=== PATIENT | male | born 1965 | race Caucasian/White ===

== ENCOUNTER 2017-09-16 13:37 | Emergency (ER) | payer OTHER, MEDICARE ==
[~2017-09-16] VITALS: Ht 185.4 cm; Wt 83.9 kg
[~2017-09-16 13:37] MED LIST: GABA800 PO; HYDACE5 PO; INSULIN PUMP; LEVSOD50 PO; LISI10 PO; LITH300C PO; LITH450ER PO; METO5A PO; ZIPR20 PO; ZIPR80 PO
[2017-09-16] MEDS ORDERED: Norco 5-325 Ta1 EACH PO (14:38)
== END 2017-09-16 14:48 | disposition home or self-care (01) ==
LOC: ER 13:37
DX: M24.9 Joint derangement, unspecified (principal); Z88.8 Allergy status to other drugs, medicaments and biological substances; Z88.5 Allergy status to narcotic agent; Z79.899 Other long term (current) drug therapy; Z79.4 Long term (current) use of insulin; E11.9 Type 2 diabetes mellitus without complications; Z87.891 Personal history of nicotine dependence
CPT/HCPCS: 73030

== ENCOUNTER 2017-12-06 00:27 | Inpatient (IN) | payer OTHER, MEDICARE ==
[~2017-12-06] VITALS: Ht 182.9 cm; Wt 80.3 kg
[~2017-12-06 00:27] MED LIST changes: +Norco 5-325 Ta1 EACH PO
[2017-12-06 01:17] LABS: Bicarbonate Venous 13.5 mmol/L (24.0-30.0); PCO2 Venous 31.6 mmHg (38-42); PO2 Venous 59.1 mmHg (38-42)
[2017-12-06 01:18] LABS: pH Blood Venous 7.19 (7.34-7.37)
[2017-12-06 01:20] LABS: BASOPHILS ABSOLUTE AUTO 0.04 K/mm3 (0.00-0.23); BASOPHILS PERCENT AUTO 0 % (0-2); EOSINOPHILS PERCENT AUTO 0 % (0-6); Hematocrit 45.9 % (37.0-53.0); Hemoglobin 15.3 g/dL (13.5-17.5); IMMATURE GRAN ABSOLUTE AUTO 0.24 K/mm3 (0.00-0.10); IMMATURE GRAN PERCENT AUTO 1 % (0-1); LYMPHOCYTES ABSOLUTE AUTO 1.13 K/mm3 (0.84-5.20); LYMPHOCYTES PERCENT AUTO 4 % (21-46); MONOCYTES ABSOLUTE AUTO 1.91 K/mm3 (0.16-1.47); MONOCYTES PERCENT AUTO 7 % (4-13); Mean Corpuscular HGB 31.7 pg (26.0-34.0); Mean Corpuscular HGB Conc 33.3 g/dL (31.5-36.5); Mean Corpuscular Volume 95 fL (80-100); Mean Platelet Volume 9.7 fL (9.1-12.4); NEUTROPHILS ABSOLUTE AUTO 24.95 K/mm3 (1.96-9.15); NEUTROPHILS PERCENT AUTO 88 % (41-73); Platelet Count 391 K/mm3 (150-400); RDW Coefficient Variation 12.6 % (11.7-14.2); Red Blood Cell Count 4.83 M/mm3 (4.30-5.90); White Blood Cell Count 28.27 K/mm3 (4.00-11.30)
[2017-12-06 02:18] LABS: Beta-hydroxybutyrate 79.8 mg/dL (0.2-2.8); Bilirubin, Total 2.3 mg/dL (0.1-1.0); Bun/Creatinine Ratio 23.9 (12.0-20.0); Calcium, Blood 8.8 mg/dL (8.5-10.1); Creatinine, Blood 1.55 mg/dL (0.60-1.20); Globulin, Blood 4.2 g/dL (2.2-4.0); Potassium, Blood 4.7 mmol/L (3.5-5.5); Total Protein, Blood 8.2 g/dL (6.4-8.2)
[2017-12-06 02:22] LABS: Source, Urine Voided
[2017-12-06 02:39] LABS: Bilirubin, Urine Neg (Neg); Blood, Urine Neg (Neg); Glucose Qualitative, Urine 4+ (Neg); Ketones, Urine 4+ (Neg); Leukocyte Esterase, Urine Neg (Neg); Nitrite, Urine Neg (Neg); Protein, Urine Neg (Neg); Urobilinogen, Urine NORM (Normal)
[2017-12-06 02:41] LABS: Appearance, Urine Clear (Clear); Color, Urine Yellow (P-Yellow)
[2017-12-06 04:20] LABS: Glucose (ISTAT POC) 425 mg/dL (70-99)
[2017-12-06 05:59] LABS: Bun/Creatinine Ratio 22.3 (12.0-20.0); Calcium, Blood 7.7 mg/dL (8.5-10.1); Creatinine, Blood 1.48 mg/dL (0.60-1.20); Potassium, Blood 3.5 mmol/L (3.5-5.5)
[2017-12-06 06:04] LABS: Lithium <0.20 mmol/L (0.60-1.20)
[2017-12-06 09:12] LABS: Anion Gap 9 mmol/L (6-16); Blood Urea Nitrogen 32 mg/dL (8-24); Bun/Creatinine Ratio 24.2 (12.0-20.0); CO2, Blood 22 mmol/L (21-32); Calcium, Blood 7.6 mg/dL (8.5-10.1); Chloride, Blood 106 mmol/L (98-108); Creatinine, Blood 1.32 mg/dL (0.60-1.20); Glomerular Filtration Rate >60 (60-); Glucose, Blood 220 mg/dL (70-99); Potassium, Blood 3.9 mmol/L (3.5-5.5); Sodium, Blood 137 mmol/L (136-145)
[2017-12-06] MEDS ORDERED: LAMO100 PO (11:35)
[2017-12-06 16:42] LABS: Potassium, Blood 3.9 mmol/L (3.5-5.5)
[2017-12-07 04:37] LABS: Anion Gap 7 mmol/L (6-16); Blood Urea Nitrogen 22 mg/dL (8-24); Bun/Creatinine Ratio 19.5 (12.0-20.0); CO2, Blood 26 mmol/L (21-32); Calcium, Blood 7.9 mg/dL (8.5-10.1); Chloride, Blood 107 mmol/L (98-108); Creatinine, Blood 1.13 mg/dL (0.60-1.20); Glomerular Filtration Rate >60 (60-); Glucose, Blood 158 mg/dL (70-99); Potassium, Blood 3.9 mmol/L (3.5-5.5); Sodium, Blood 140 mmol/L (136-145)
== END 2017-12-07 11:00 | disposition home or self-care (01) | DRG 638 ==
LOC: ER 00:27 → ICUW 02:53 → ICUE 03:23 → PCU 20:30
PROVIDERS: Emergency Medicine; Family Medicine; Internal Medicine
DX: E10.10 Type 1 diabetes mellitus with ketoacidosis without coma (principal); E87.1 Hypo-osmolality and hyponatremia; N17.9 Acute kidney failure, unspecified; Z96.41 Presence of insulin pump (external) (internal); E10.43 Type 1 diabetes mellitus with diabetic autonomic (poly)neuropathy; K31.84 Gastroparesis; F32.9 Major depressive disorder, single episode, unspecified; E03.9 Hypothyroidism, unspecified; E11.40 Type 2 diabetes mellitus with diabetic neuropathy, unspecified; Z88.5 Allergy status to narcotic agent; Z88.8 Allergy status to other drugs, medicaments and biological substances; Z79.899 Other long term (current) drug therapy; Z87.891 Personal history of nicotine dependence
CPT/HCPCS: 36415; 71046; 80048; 80051; 80053; 80178; 81003; 82010; 82803; 82947; 83605; 84484; 85025; 96361; 96374; 99285-25; J1815; J2405; J2550; J3480; J7030; J7042

== ENCOUNTER 2019-08-04 08:12 | Day surgery (SDC) | payer OTHER, MEDICARE ==
[~2019-08-04 08:12] MED LIST changes: +LAMO100 PO
--- NOTE | 2019-08-04 11:02 | NUR ---
DISCHARGE Discharge instructions reviewed with patient. Patient verbalizes understanding. Copy given to patient to take home. Discharged via wheelchair to private car for ride home. PT [facility] CALLED FOR OK TO DC HOME PT DENIES ANY COMPLAINTS AT THIS TIME
== END 2019-08-04 11:04 | disposition home or self-care (01) ==
LOC: RAD 08:12 → CT 10:00 → RAD 11:04
DX: M96.1 Postlaminectomy syndrome, not elsewhere classified (principal); J43.9 Emphysema, unspecified; Z88.6 Allergy status to analgesic agent; Z79.899 Other long term (current) drug therapy; E10.40 Type 1 diabetes mellitus with diabetic neuropathy, unspecified
CPT/HCPCS: 62303; 72129; Q9966

== ENCOUNTER 2021-03-04 14:23 | Day surgery (SDC) | payer OTHER, MEDICARE ==
[~2021-03-04] VITALS: Ht 185.4 cm; Wt 81.4 kg
--- NOTE | 2021-03-04 15:19 | NUR ---
03/04/21 1519 Iliana Tenorio PT HAS MEDICAL ALERT ON, REMOVED WEDDING RING AND GAVE TO SPOUSE. PT HAS INSULIN PUMP, SPINAL CORD STIMULATOR AND CGM IMPLANTED. PT ATE THIS MORNING AT 0500, DR GORDON AND DR CALDERON AWARE. NO QUESTIONS OR CONCERNS FROM THE PT AT THIS TIME. PERSONAL GLASSES GIVEN TO . CAN E AND HAT WILL BE PLACED WITH PERSONAL BELONGINGS.
--- NOTE | 2021-03-04 15:29 | NUR ---
03/04/21 1529 Jim Pizarro SMALL DOT ABRASION ON SURGICAL ANKLE. DR NOTIFIED, OK TO PROCEED.
--- NOTE | 2021-03-04 16:41 | NUR ---
03/04/[address] ORDERED A CBG, PT HAS HIS OWN CGM AND DR CALDERON SAID THAT USING HIS READING INSTEAD OF CHECKING WITH OUR MONITOR IS FINE. HIS READING WAS 101 AT 1630.
== END 2021-03-04 16:58 | disposition home or self-care (01) ==
LOC: ORSCSDS 14:23
PROVIDERS: Podiatrist Foot & Ankle Surgery
PROC: 0Y6T0Z0 Detachment at Right 3rd Toe, Complete, Open Approach (ICD-10-PCS; principal; 2021-03-04 16:00)
PROC: 0Y6X0Z0 Detachment at Right 5th Toe, Complete, Open Approach (ICD-10-PCS; principal; 2021-03-04 16:00)
PROC: 0Y6V0Z0 Detachment at Right 4th Toe, Complete, Open Approach (ICD-10-PCS; principal; 2021-03-04 16:00)
DX: L89.891 Pressure ulcer of other site, stage 1 (principal); E11.42 Type 2 diabetes mellitus with diabetic polyneuropathy; Z79.4 Long term (current) use of insulin; Z79.899 Other long term (current) drug therapy; E03.9 Hypothyroidism, unspecified; I10 Essential (primary) hypertension; K21.9 Gastro-esophageal reflux disease without esophagitis; F31.9 Bipolar disorder, unspecified; Z87.891 Personal history of nicotine dependence; J44.9 Chronic obstructive pulmonary disease, unspecified
CPT/HCPCS: 82947; J0690; J1100; J2250; J2405; J2704; J3010; J7120; J7799

== ENCOUNTER 2021-10-25 09:26 | Day surgery (SDC) | payer OTHER, MEDICARE ==
[~2021-10-25] VITALS: Ht 185.4 cm; Wt 80.6 kg
[2021-10-25] MEDS ORDERED: IBUP200 (10:18)
--- NOTE | 2021-10-25 12:33 | NUR ---
10/25/21 1233 Colby Og 5/325 PROVIDED AT 1205 FOR LEFT LEG PAIN AT 05/30. PRESENT DURING DISCHARGE INSTRUCTIONS.
== END 2021-10-25 12:25 | disposition home or self-care (01) ==
LOC: ORSCSDS 09:26
PROVIDERS: Podiatrist Foot & Ankle Surgery
PROC: 0L8P0ZZ Division of Left Lower Leg Tendon, Open Approach (ICD-10-PCS; principal; 2021-10-25 11:00)
DX: E10.40 Type 1 diabetes mellitus with diabetic neuropathy, unspecified (principal); M24.573 Contracture, unspecified ankle; J44.9 Chronic obstructive pulmonary disease, unspecified; I10 Essential (primary) hypertension; Z87.891 Personal history of nicotine dependence; E03.9 Hypothyroidism, unspecified; Z79.4 Long term (current) use of insulin; Z79.899 Other long term (current) drug therapy
CPT/HCPCS: 82947; A9270; J0171; J0690; J1100; J2250; J2310; J2405; J2704; J2795; J3010

== ENCOUNTER 2022-03-17 16:57 | Emergency (ER) | payer OTHER, MEDICARE ==
[~2022-03-17] VITALS: Ht 185.4 cm; Wt 83.9 kg
[~2022-03-17 16:57] MED LIST changes: +IBUP200
[2022-03-18] MEDS ORDERED: AMOCLA875 PO (14:25)
== END 2022-03-17 20:19 | disposition home or self-care (01) ==
LOC: ER 16:57
DX: S61.250A Open bite of right index finger without damage to nail, initial encounter (principal); E11.9 Type 2 diabetes mellitus without complications; W54.0XXA Bitten by dog, initial encounter; Z88.8 Allergy status to other drugs, medicaments and biological substances; Z88.5 Allergy status to narcotic agent; Z79.4 Long term (current) use of insulin; Z79.899 Other long term (current) drug therapy; Z87.891 Personal history of nicotine dependence
CPT/HCPCS: 90714; A9270

== ENCOUNTER 2022-04-02 04:08 | Day surgery (SDC) | payer MEDICARE, OTHER ==
[~2022-04-02 04:08] MED LIST changes: +AMOCLA875 PO
== END 2022-04-02 23:09 | disposition home or self-care (01) ==
LOC: WOUND 04:08
DX: E11.621 Type 2 diabetes mellitus with foot ulcer (principal); L97.422 Non-pressure chronic ulcer of left heel and midfoot with fat layer exposed; L89.623 Pressure ulcer of left heel, stage 3; M79.672 Pain in left foot; Z88.5 Allergy status to narcotic agent; Z87.891 Personal history of nicotine dependence
CPT/HCPCS: A9270; G0463

== ENCOUNTER 2022-04-09 05:23 | Day surgery (SDC) | payer MEDICARE, OTHER | END 2022-04-09 23:05 | disposition home or self-care (01) | LOC: WOUND 05:23 | DX: E10.621 Type 1 diabetes mellitus with foot ulcer (principal); L97.422 Non-pressure chronic ulcer of left heel and midfoot with fat layer exposed; L89.623 Pressure ulcer of left heel, stage 3 | CPT/HCPCS: A9270; G0463 ==

== ENCOUNTER 2022-04-16 01:39 | Day surgery (SDC) | payer MEDICARE, OTHER | END 2022-04-16 22:56 | disposition home or self-care (01) | LOC: WOUND 01:39 | DX: E10.621 Type 1 diabetes mellitus with foot ulcer (principal); L89.623 Pressure ulcer of left heel, stage 3; L97.422 Non-pressure chronic ulcer of left heel and midfoot with fat layer exposed | CPT/HCPCS: A9270; G0463 ==

== ENCOUNTER 2022-04-30 00:44 | Day surgery (SDC) | payer MEDICARE, OTHER | END 2022-04-30 22:54 | disposition home or self-care (01) | LOC: WOUND 00:44 | DX: E10.621 Type 1 diabetes mellitus with foot ulcer (principal); L97.422 Non-pressure chronic ulcer of left heel and midfoot with fat layer exposed; L89.623 Pressure ulcer of left heel, stage 3 | CPT/HCPCS: G0463 ==

== ENCOUNTER 2022-05-07 08:00 | Day surgery (SDC) | payer MEDICARE, OTHER | END 2022-05-07 23:59 | disposition home or self-care (01) | LOC: WOUND 08:00 | DX: E10.621 Type 1 diabetes mellitus with foot ulcer (principal); L89.623 Pressure ulcer of left heel, stage 3; L97.422 Non-pressure chronic ulcer of left heel and midfoot with fat layer exposed; Z89.421 Acquired absence of other right toe(s); Z89.412 Acquired absence of left great toe | CPT/HCPCS: A9270; G0463 ==

== ENCOUNTER 2022-05-12 00:12 | Day surgery (SDC) | payer MEDICARE, OTHER | END 2022-05-12 22:45 | disposition home or self-care (01) | LOC: WOUND 00:12 | DX: L89.623 Pressure ulcer of left heel, stage 3 (principal); Z89.412 Acquired absence of left great toe; E10.621 Type 1 diabetes mellitus with foot ulcer; L97.422 Non-pressure chronic ulcer of left heel and midfoot with fat layer exposed | CPT/HCPCS: G0463 ==

== ENCOUNTER 2022-05-22 02:05 | Day surgery (SDC) | payer MEDICARE, OTHER | END 2022-05-22 22:48 | disposition home or self-care (01) | LOC: WOUND 02:05 | DX: L89.623 Pressure ulcer of left heel, stage 3 (principal); E10.621 Type 1 diabetes mellitus with foot ulcer; L97.422 Non-pressure chronic ulcer of left heel and midfoot with fat layer exposed | CPT/HCPCS: A9270; G0463 ==

== ENCOUNTER 2022-05-27 00:24 | Day surgery (SDC) | payer MEDICARE, OTHER | END 2022-05-27 23:10 | disposition home or self-care (01) | LOC: WOUND 00:24 | DX: E10.621 Type 1 diabetes mellitus with foot ulcer (principal); L97.422 Non-pressure chronic ulcer of left heel and midfoot with fat layer exposed; L89.622 Pressure ulcer of left heel, stage 2 ==

== ENCOUNTER 2022-05-29 00:46 | Day surgery (SDC) | payer MEDICARE, OTHER | END 2022-05-29 22:41 | disposition home or self-care (01) | LOC: WOUND 00:46 | DX: L89.623 Pressure ulcer of left heel, stage 3 (principal); E10.621 Type 1 diabetes mellitus with foot ulcer; L97.422 Non-pressure chronic ulcer of left heel and midfoot with fat layer exposed ==

== ENCOUNTER 2022-06-03 01:00 | Day surgery (SDC) | payer MEDICARE, OTHER | END 2022-06-03 22:45 | disposition home or self-care (01) | LOC: WOUND 01:00 | DX: E10.621 Type 1 diabetes mellitus with foot ulcer (principal); L97.422 Non-pressure chronic ulcer of left heel and midfoot with fat layer exposed; L89.623 Pressure ulcer of left heel, stage 3 ==

== ENCOUNTER 2022-06-10 02:06 | Day surgery (SDC) | payer MEDICARE, OTHER | END 2022-06-10 22:50 | disposition home or self-care (01) | LOC: WOUND 02:06 | DX: L89.623 Pressure ulcer of left heel, stage 3 (principal); E10.621 Type 1 diabetes mellitus with foot ulcer; L97.422 Non-pressure chronic ulcer of left heel and midfoot with fat layer exposed ==

== ENCOUNTER 2022-06-17 01:46 | Day surgery (SDC) | payer MEDICARE, OTHER | END 2022-06-17 22:37 | disposition home or self-care (01) | LOC: WOUND 01:46 | DX: E10.621 Type 1 diabetes mellitus with foot ulcer (principal); L89.623 Pressure ulcer of left heel, stage 3; L97.422 Non-pressure chronic ulcer of left heel and midfoot with fat layer exposed | CPT/HCPCS: G0463 ==

== ENCOUNTER 2022-06-23 00:52 | Day surgery (SDC) | payer MEDICARE, OTHER | END 2022-06-23 22:52 | disposition home or self-care (01) | LOC: WOUND 00:52 | DX: L89.623 Pressure ulcer of left heel, stage 3 (principal); Z89.412 Acquired absence of left great toe; E10.40 Type 1 diabetes mellitus with diabetic neuropathy, unspecified | CPT/HCPCS: G0463 ==

== ENCOUNTER 2022-06-30 01:04 | Day surgery (SDC) | payer MEDICARE, OTHER | END 2022-06-30 22:58 | disposition home or self-care (01) | LOC: WOUND 01:04 | DX: L89.622 Pressure ulcer of left heel, stage 2 (principal); E10.621 Type 1 diabetes mellitus with foot ulcer; E10.40 Type 1 diabetes mellitus with diabetic neuropathy, unspecified | CPT/HCPCS: A9270; G0463 ==

== ENCOUNTER 2022-07-09 01:18 | Day surgery (SDC) | payer MEDICARE, OTHER | END 2022-07-09 23:04 | disposition home or self-care (01) | LOC: WOUND 01:18 | DX: L89.622 Pressure ulcer of left heel, stage 2 (principal); E10.621 Type 1 diabetes mellitus with foot ulcer ==

== ENCOUNTER 2022-07-16 02:38 | Day surgery (SDC) | payer MEDICARE, OTHER | END 2022-07-16 23:31 | disposition home or self-care (01) | LOC: WOUND 02:38 | DX: E10.621 Type 1 diabetes mellitus with foot ulcer (principal); L97.422 Non-pressure chronic ulcer of left heel and midfoot with fat layer exposed; L89.623 Pressure ulcer of left heel, stage 3; E10.40 Type 1 diabetes mellitus with diabetic neuropathy, unspecified ==

== ENCOUNTER 2022-07-23 03:19 | Day surgery (SDC) | payer MEDICARE, OTHER | END 2022-07-23 22:42 | disposition home or self-care (01) | LOC: WOUND 03:19 | DX: E10.621 Type 1 diabetes mellitus with foot ulcer (principal); L97.422 Non-pressure chronic ulcer of left heel and midfoot with fat layer exposed; L89.623 Pressure ulcer of left heel, stage 3 | CPT/HCPCS: G0463 ==

== ENCOUNTER → 2023-01-08 | Outpatient (CLI) | payer MEDICARE, OTHER | END | disposition home or self-care (01) | LOC: LAB SHORT 14:24 → LAB 14:24 | DX: L82.1 Other seborrheic keratosis (principal); L81.9 Disorder of pigmentation, unspecified | CPT/HCPCS: 88305 ==

== ENCOUNTER 2024-06-24 10:23 | Day surgery (SDC) | payer MEDICARE, OTHER ==
[~2024-06-24] VITALS: Ht 185.4 cm; Wt 78.2 kg
[~2024-06-24 10:23] MED LIST changes: +Bupivacaine 0.5% W/EPI 1:200000 SDV 30 ML Vial ONE; +DOXYCYCLINE HY100 M1 PO; +GABA300 PO; +HUMALOG100 UNIT/1; +HUMALOG100 UNIT/1 SC; +Lactated Ringer's 1,000 ML IV ONE; +METO50ER PO; +SILVADENE20 G8 TOP
[2024-06-24] MEDS ORDERED: CeFAZolin Sodium 2,000 MG VIAL ONE (10:40)
[2024-06-24] MEDS ORDERED: LEVSOD25 PO (11:10)
[2024-06-24] MEDS ORDERED: Lactated Ringer's 1,000 ML IV ONE (11:21)
--- NOTE | 2024-06-24 11:42 | NUR ---
[facility] HIS INSULIN PUMP AND GLUCOSE MONITOR IS READING 82 AND HE FEELS SYMPTOMATIC, IV STARTED AND BLOOD GLUCOSE USING FACILITY MONITOR RESULTED 56. THIS RN INFORMED [facility] KENISHA,RN WHO CONSULTED DR MIGUEL. PER KENISHA,RN PER DR MIGUEL VERBAL ORDER FOR 1/2 AMP OF 50% DEXTROSE. THIS OBTAINED FROM [facility] AND 1/2 AMP GIVEN AT 1105. WILL RECHECK BLOOD SUGAR IN 15 MINUTES. 1127: DIFFICULTY WITH CBG MONITOR, BUT BLOOD SUGAR CHECKED AGAIN AND IT RESULTED AT 104. 1132: UPDATED DR MIGUEL THAT PATIENT'S BLOOD SUGAR IS NOW 104 AND HE STATES HE IS FEELING BETTER.
[2024-06-24] MEDS ORDERED: propofoL 20 ML IV ONE (11:52)
[2024-06-24] MEDS ORDERED: FentaNYL Citrate 50 MCG/ML 2 ML Injection ONE ×2 (11:54→13:27)
[2024-06-24] MEDS ORDERED: Dexamethasone Sod Phos 10 MG/ML 1ML VIAL ONE (12:43)
[2024-06-24] MEDS ORDERED: Ondansetron HCl 2 MG / ML 2ML Vial ONE (12:43)
[2024-06-24] MEDS ORDERED: Ketorolac Tromethamine 30mg Vial ONE (12:43)
--- NOTE | 2024-06-24 13:23 | NUR ---
06/24/24 1323 Trini Weir VERIFIED WITH MDA IF REPEAT FSBS NEEDED, MDA ORDERED TO LOOK AT INSULIN PUMP. INSULIN PUMP READ 112. PATIENT AAOX4
--- NOTE | 2024-06-24 13:52 | NUR ---
06/24/24 1352 Trini Weir BROUGHT TO BEDSIDE. [facility] 132.
[2024-06-24 13:57] VITALS: BP 131/57
[2024-06-24] MEDS ORDERED: Dextrose 50% 50 ML Syringe IV ONE (17:01)
== END 2024-06-24 14:22 | disposition home or self-care (01) ==
LOC: ORSCSDS 10:23
PROVIDERS: Podiatrist Foot & Ankle Surgery
PROC: 0Y6W0Z0 Detachment at Left 4th Toe, Complete, Open Approach (ICD-10-PCS; principal; 2024-06-24 12:00)
PROC: 0Y6S0Z0 Detachment at Left 2nd Toe, Complete, Open Approach (ICD-10-PCS; principal; 2024-06-24 12:00)
PROC: 0Y6U0Z0 Detachment at Left 3rd Toe, Complete, Open Approach (ICD-10-PCS; principal; 2024-06-24 12:00)
PROC: 0Y6Y0Z0 Detachment at Left 5th Toe, Complete, Open Approach (ICD-10-PCS; principal; 2024-06-24 12:00)
DX: M20.42 Other hammer toe(s) (acquired), left foot (principal); E10.621 Type 1 diabetes mellitus with foot ulcer; Z96.41 Presence of insulin pump (external) (internal); F31.9 Bipolar disorder, unspecified; Z79.899 Other long term (current) drug therapy; Z87.891 Personal history of nicotine dependence
CPT/HCPCS: 82947; 88305; 88311; J0690; J1100; J1885; J2405; J2704; J3010; J7120

== ENCOUNTER → 2024-09-23 | Emergency (ER) | payer MEDICARE, OTHER ==
[~2024-09-23] VITALS: Ht 185.4 cm; Wt 81.7 kg
[~2024-09-23] MED LIST changes: -Bupivacaine 0.5% W/EPI 1:200000 SDV 30 ML Vial ONE; +INSULIN LISPRO; +LEVSOD25 PO; -Lactated Ringer's 1,000 ML IV ONE; +NOVALOG; +TOPI100 PO
[2024-09-23 11:42] VITALS: BP 137/72
== END ==
LOC: ER 11:02
DX: S61.452A Open bite of left hand, initial encounter (principal); S61.451A Open bite of right hand, initial encounter; E11.43 Type 2 diabetes mellitus with diabetic autonomic (poly)neuropathy; W55.01XA Bitten by cat, initial encounter; Z87.891 Personal history of nicotine dependence; Z79.4 Long term (current) use of insulin; Z79.899 Other long term (current) drug therapy; Z88.8 Allergy status to other drugs, medicaments and biological substances; Z88.0 Allergy status to penicillin; Z88.5 Allergy status to narcotic agent
CPT/HCPCS: 99282

== ENCOUNTER → 2025-02-06 | Outpatient (CLI) | payer MEDICARE, OTHER ==
[2025-02-07 08:14] LABS: CHOL/HDL RATIO 2.0; Cholesterol 139 mg/dL (50-200); HDL Cholesterol 69 mg/dL (>39); LDL/HDL RATIO 0.7; Low Density Lipoprotein Chol 45 mg/dL (0-110); Prostate Specific Antigen 2.030 ng/mL (0.000-4.000); Triglycerides 124 mg/dL (30-160); Very Low Density Lipoprot Chol 24 mg/dL (6-32)
== END ==
LOC: LAB SHORT 12:00 → LAB 12:00
PROVIDERS: Student in an Organized Health Care Education/Training Program
DX: Z13.6 Encounter for screening for cardiovascular disorders (principal); Z12.5 Encounter for screening for malignant neoplasm of prostate
CPT/HCPCS: 80061; G0103